=== PATIENT | female | born 2000 | race Caucasian/White ===

== ENCOUNTER 2024-05-24 00:27 | Day surgery (SDC) | payer BC ==
[2024-05-24 00:58] VITALS: BMI 26.6
[2024-05-24] MEDS ORDERED: hydrALAZINE 20 MG/ML VIAL SLOW IVP PRN (01:15)
== END 2024-05-24 02:25 | disposition home or self-care (01) ==
LOC: CSHLD/OP 00:27
PROVIDERS: ATTEND Student in an Organized Health Care Education/Training Program
DX: O47.1 False labor at or after 37 completed weeks of gestation (principal); O24.419 Gestational diabetes mellitus in pregnancy, unspecified control; O00.01 Abdominal pregnancy with intrauterine pregnancy; Z79.899 Other long term (current) drug therapy; Z3A.39 39 weeks gestation of pregnancy
CPT/HCPCS: 99283